=== PATIENT | female | born 1940 | race African-American/Black ===

== ENCOUNTER 2021-11-11 13:59 | Emergency (ER) | payer OTHER ==
[2021-11-11 14:15] VITALS: TEMP 97.7; BMI 39.8
[2021-11-11] MEDS ORDERED: SODIUM CHLORIDE 0.9% 500 ML INFUS.BAG IV ONE ×2 (15:44→16:13)
[2021-11-11] MEDS ORDERED: METOCLOPRAMIDE HCL INJECTION 10 MG/2 ML VIAL IVPB ONE (15:44)
[2021-11-11] MEDS ORDERED: ACETAMINOPHEN 1000 MG/100 ML BAG IVPB ONE (15:44)
[2021-11-11] MEDS ORDERED: ACETAMINOPHEN INJECTION 100 ML IVPB ONE (16:44)
[2021-11-11] MEDS ORDERED: METOCLOPRAMIDE HCL INJECTION 10 MG/2 ML VIAL ONE (16:44)
[2021-11-11] MEDS ORDERED: IBUPROFEN 400 MG TABLET (FP) PO ONE ×2 (17:47→18:38)
[2021-11-11 19:23] VITALS: BP 120/54; PULSE 66
== END 2021-11-11 18:55 | disposition home or self-care (01) ==
LOC: JER 13:59
PROC: 3E0333Z Introduction of Anti-inflammatory into Peripheral Vein, Percutaneous Approach (ICD-10-PCS; principal; 2021-11-11)
PROC: 3E033GC Introduction of Other Therapeutic Substance into Peripheral Vein, Percutaneous Approach (ICD-10-PCS; 2021-11-11)
DX: R51.9 Headache, unspecified (principal)
CPT/HCPCS: 70450-TC; 93005; 93010; 99285-25

== ENCOUNTER 2023-04-17 13:55 | Emergency (ER) | payer OTHER ==
[2023-04-17 14:08] VITALS: BP 117/54; PULSE 75; RESP 16; TEMP 98.5; BMI 43.5
== END 2023-04-17 19:52 | disposition home or self-care (01) ==
LOC: JER 13:55
DX: M79.604 Pain in right leg (principal); M79.605 Pain in left leg; R22.43 Localized swelling, mass and lump, lower limb, bilateral; M79.671 Pain in right foot; M79.672 Pain in left foot
CPT/HCPCS: 93970-TC; 99284-25